=== PATIENT | female | born 1970 | race Caucasian/White ===

== ENCOUNTER 2019-01-02 14:35 | Outpatient (CLI) ==
--- NOTE | 2019-01-02 15:51 | DI ---
EXAM: Five views of the lumbar spine. History: Chronic lower back pain. Findings: No acute fracture or subluxation of the lumbar spine. Mild multilevel disc space narrowin g with a few small osteophytes. Mild facet hypertrophy at L5-S1. Moderate colonic stool. Impression: 1. No acute osseous abnormality of the lumbar spine. 2. Mild degenerative changes. 3. Moderate colonic stool
== END 2019-01-02 14:36 | disposition home or self-care (01) ==
LOC: RAD 14:35
PROVIDERS: ATTEND Family Medicine
DX: M54.5 Low back pain (principal); G89.29 Other chronic pain